=== PATIENT | male | born 1985 | race Caucasian/White ===

== ENCOUNTER 2020-01-26 08:30 | Outpatient (RCR) | payer OTHER, SELFPAY ==
--- NOTE | 2020-01-15 09:18 | HP.OTEVAL_ITS ---
Patient's Visit Information ALEX WU is a 34 year old M, referred to Occupational Therapy by LINH CONNOR, with a diagnosis of left MF swan neck deformity. Date of Evaluation: 01/15/20 Occupational Therapist: Rebekah Street, CHRISTOPHERR/Nasim, CHT - Subjective this 34 year old male was seen for inital OT eval for. November 14 pt took a fall off [address] home, suffered a left MF dislocation. 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 - Pain left MF 4 Pain Intensity Range: 0, 4 - ROM MP: right 0/85 left 0/90 PIP: right 0/90 left 0/75 DIP: rigth 0/040 left 0/40 - Strength Medical Radiation Therapist: right 90 left 45# - Sensation Sensation Comments: denies - Quick DASH-Disab of Arm,Shoulder& Hand Quick DASH Score: 39.2850 - Goals Goal:: PT will demo a increase in Left MF PIP ROM by 10* or greater for pt to form tight compoiste fist by d/c Goal:: pt edgard report no pain greater than 1/10 witih daily use of left hand with ADls and work tasks by d/c - Rehabilitation General Assessment: Pt demo with functional ROM of left MF (15* of flexion from unaffected finger) a 5* hyper-extension and 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 this has limited pt with IADLs and work tasks. Pt would benefit from skilled OT services 2-3 visits to ensure pts ROM continues to improve. Today therapist ed. pt on swan neck deformity and recovery, use of gilberto tape to RF to cont. to improve his ROM. Therapist ed. pt on tendon glide ex holding end range for 6 sec. to continue to increase pt to full composite fist to return to PLOF. pt demo understanding of his HEP and agree to POC. Pt to return 01/26/20 for new measurments. Rehabilitation Potential: Excellent - Anticipated Interventions A/AAROM/PROM, Triggerpoint Release, Orthoses, Ergonomic Education, Home Program - Visit Plan TEXT: Thank you for the opportunity to evaluate your patient. For Medicare and Medicare HMO plans, please review the plan of care and approve it. It will need to be FAXED BACK to us at [phone] for Medicare purposes. Please let me know if there are questions or concerns regarding this plan of care. Physician Signature: Date:
--- NOTE | 2020-01-26 08:55 | OTREVAL_ITS ---
LINH CONNOR, It has been my pleasure to treat ALEX WU over the last 2 visits for left MF swan neck deformity. Please see the progress note below for an update on the occupational therapy plan of care! Subjective: pt states he is feeling good- no new concerns. states he is performing all work and ADL tasks ind. Objective/Function: left tripod pinch 22#. 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 left MF MCP 80 PIP 0/80 DIP 0/40 (pt can push into PIP hyper ext of -10). (right MF can push into a hyper ext of -15). left IF MCP 0/80 PIP 0/80 DIP 0/ 55. pt has made good gains with his progress and demo min. swan neck deformitiy at this time. Plan Visits in this POC: 2 - 3 visits as pt has progressed well Plan: pt to use oval 8 splint until released from on February 05. Goals - Goals Patient Goals: Regain Mobility, Use Hand/Wrist/Arm Normally Again Goal:: PT will demo a increase in Left MF PIP ROM by 10* or greater for pt to form tight compoiste fist by d/c Goal:: pt edgard report no pain greater than 1/10 witih daily use of left hand with ADls and work tasks by d/c Anticipated Interventions Anticipated Interventions: A/AAROM/PROM, Triggerpoint Release, Orthoses, Ergonomic Education, Home Program Please do not hesitate to contact me at [phone] by phone or if you have questions or concerns regarding this new plan of care! Sincerely, Rebekah Street, OTR/L, CHT
--- NOTE | 2020-04-04 07:43 | HP.OT.NRP ---
ALEX WU was seen in my office for initial evaluation on 01/15/20. The following Plan of Care was established for this patient: Plan: pt to use oval 8 splint until released from on February 05. Anticipated Interventions: A/AAROM/PROM, Triggerpoint Release, Orthoses, Ergonomic Education, Home Program This patient was last seen in our office 01/26/20. Pertinent comments regarding their Occupational therapy will appear below: Pt was seen for 2 visits only- pt was to see in january. pt has not scheduled further apts and is d/c at this time due to time lapse in therapy services. At this point I will be discontinuing this patient from occupational therapy. I would be happy to see this patient again in the future if found appropriate by the physician. Thank you! Rebekah Street, OTR/L, CHT
== END 2020-01-26 19:00 | disposition home or self-care (01) ==
LOC: OT 08:30
PROVIDERS: PCP Family Medicine
DX: M20.032 Swan-neck deformity of left finger(s) (principal)
CPT/HCPCS: 97110; 97166; 97530